=== PATIENT | male | born 1970 | race African-American/Black ===

== ENCOUNTER 2019-02-13 14:04 | Emergency (ER) | payer BC ==
[~2019-02-13] VITALS: Ht 193 cm; Wt 101.6 kg
[2019-02-13 14:05] VITALS: Ht 193 cm; Wt 101.6 kg
[2019-02-13 14:43] LABS: CALCIUM 9.8 mg/dL (8.5-10.1); CARBON DIOXIDE 29.1 mmol/L (21-32); CHLORIDE SERUM 94 mmol/L (98-107); CREATININE SERUM 1.2 mg/dL (0.7-1.3); GFR1 > 60 mL/min; GLUCOSE SERUM 285 mg/dL (74-106); POTASSIUM SERUM 3.9 mmol/L (3.5-5.1); SODIUM SERUM 132 mmol/L (136-145)
[2019-02-13 14:47] LABS: ALBUMIN 3.8 g/dL (3.4-5.0); ALKALINE PHOSPHATASE 72 U/L (46-116); ALT/SGPT 35 U/L (16-63); AST/SGOT 19 U/L (15-37); BASOPHIL % 0.8 % (0-2); BILIRUBIN TOTAL 0.7 mg/dL (0.20-1.00); PLATELET COUNT 227 x10^3mcL (130-400); RED CELL DISTRIBUTION WIDTH 13.7 % (11.5-14.5)
[2019-02-13 16:05] LABS: UA SPECIFIC GRAVITY <=1.005 (1.005-1.035); microscopic required? YES; urine erythrocyte 2+ (NEGATIVE)
[2019-02-13 16:10] LABS: LIPASE 126 IU/L (73-393)
[2019-02-13 18:55] VITALS: BP 149/66
== END 2019-02-13 18:55 | disposition home or self-care (01) ==
LOC: ED 14:04
PROVIDERS: Emergency Medicine
DX: N13.2 Hydronephrosis with renal and ureteral calculous obstruction (principal); N39.0 Urinary tract infection, site not specified; E11.65 Type 2 diabetes mellitus with hyperglycemia; I10 Essential (primary) hypertension
CPT/HCPCS: J0696; J1885; J2405; J7030; J7060